=== PATIENT | male | born 1970 | race American Indian/Alaskan Native ===

== ENCOUNTER 2021-10-15 13:29 | Emergency (ER) | payer OTHER ==
[2021-10-15] MEDS ORDERED: traMADol 50 MG TAB PO ONE (14:14)
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
[2021-10-15 18:00] VITALS: BP 138/88
== END 2021-10-15 16:36 | disposition home or self-care (01) ==
LOC: ED 13:29
DX: S16.1XXA Strain of muscle, fascia and tendon at neck level, initial encounter (principal); S46.911A Strain of unspecified muscle, fascia and tendon at shoulder and upper arm level, right arm, initial encounter; Z88.0 Allergy status to penicillin; V89.2XXA Person injured in unspecified motor-vehicle accident, traffic, initial encounter; Y93.89 Activity, other specified; Y92.89 Other specified places as the place of occurrence of the external cause; Y99.8 Other external cause status
CPT/HCPCS: 72040; 99283